=== PATIENT | male | born 1960 | race Caucasian/White ===

== ENCOUNTER 2024-04-06 07:18 | Emergency (ER) | payer OTHER, SELFPAY ==
[2024-04-06 07:24] VITALS: BP 175/98
--- NOTE | 2024-04-06 07:42 | ED.GENMED ---
History of Present Illness
General
Chief Complaint: Musculo-Skeletal Complaint
Source: patient
Exam Limitations: none
Time Seen by Provider: 04/06/24 07:31
History of Present Illness
History of Present Illness:
Patient was working on a machine at work caught his shirt causing an abrasion and injury to his right buttock. No pain with weightbearing. Last tetanus was 1 year ago. No other injury or complaint.
Past History
Past History
ED Past Medical History: CAD, Hypercholesterolemia and NIDDM
Review of Systems
Review of Systems
All Other Systems: Not applicable
Respiratory: Reports no symptoms
ABD/GI: Reports no symptoms
Phy Exam
Physical Exam
Physical Exam:
TRAUMA EXAM:
VITAL SIGNS: Vital signs reviewed, cooperative
DISTRESS: No active disease
EYES: Pupils reactive, no orbital trauma
FACE AND SCALP: No scalp or facial trauma
NECK: Supple nontender
BACK: Back nontender, pelvis stable to compression
RESPIRATORY: No distress, breath sounds normal, no tender chest wall
CARDIAC: No murmur, pulses equal and strong
ABDOMEN: Soft nontender bowel sounds normal
SKIN: Moderate abrasion to the right buttock
EXTREMITIES: Nontender
NEUROLOGICAL: Alert, oriented, no motor deficits
PSYCH: Mood affect normal
Course
Orders/Labs/Results
Orders:
Orders
04/06/24 08:15
Pelvis, 1 or 2 Views CR [CR Pelvis - 1 Or 2 Views ] Urgent
Comment:
Reason For Exam: Right buttock trauma
Vital Signs
Initial and Last Documented VS:
Initial Vital Signs
Temp Pulse Resp BP Pulse Ox
98.2 F 85 16 175/98 98
04/06/24 07:24 04/06/24 07:24 04/06/24 07:24 04/06/24 07:24 04/06/24 07:24
Last Documented Vital Signs
Temp Pulse Resp BP Pulse Ox
98.2 F 85 16 175/98 98
04/06/24 07:24 04/06/24 07:24 04/06/24 07:24 04/06/24 07:24 04/06/24 07:24
MDM/Problems Addressed
Differential Diagnosis Includes:
Clinically this is all soft tissue abrasion and contusion. X-ray for completeness. Wound cleaned and dressed. Tetanus up-to-date. Offered pain management which patient refused
*Radiology
Radiology exam reviewed: preliminary read by ED provider (Negative)
*Critical Care Note
Total Time (30-74mins, 75-104mins- exclusive of procedures): Not Applicable
Update Note
Update Note:
Buttock contusion/abrasion. Stable for discharge
ED Attending Note
-
Portions of this chart may have been created with voice recognition software.� Occasional wrong word or��sound alike� substitutions may have occurred due to the inherent limitations of voice recognition software.
Discharge Plan
Departure
Patient Disposition: Home (Routine Discharge)
Date of Disposition: 04/06/24
Time of Disposition: 08:55
Patient with high blood pressure during this ER visit?: Yes
Discharge Problem:
Buttock contusion/abrasion
Instructions: Contusion (DC), Abrasions ED, BLOOD PRESSURE
Referrals:
NONE,* [Family Provider] -
Activity Restrictions/Additional Instructions:
Tylenol for pain
Get rechecked with any concerns or issues, especially infectious issues
Interventions
Interventions:
*Risk Screen - Suicide Last Done: 04/06/24 07:24
*General Assessment Last Done: 04/06/24 07:36
*Neglect/Abuse Screening Last Done: 04/06/24 07:24
ED- Fall Risk Assessment Last Done: 04/06/24 07:36
*ED COVID-19 Vaccine History Last Done: 04/06/24 07:36
ED-Musculoskeletal Assessment Last Done: 04/06/24 07:36
Discharge Date and Time
Print Language: SINHALA
== END 2024-04-06 09:07 | disposition home or self-care (01) ==
LOC: EMR 07:18
PROVIDERS: EMERGENCY PHYSICIAN Emergency Medicine
DX: S30.810A Abrasion of lower back and pelvis, initial encounter (principal); S30.0XXA Contusion of lower back and pelvis, initial encounter; W31.9XXA Contact with unspecified machinery, initial encounter; Y99.0 Civilian activity done for income or pay; I25.10 Atherosclerotic heart disease of native coronary artery without angina pectoris; E78.00 Pure hypercholesterolemia, unspecified; E11.9 Type 2 diabetes mellitus without complications
CPT/HCPCS: 99283; 72170